=== PATIENT | female | born 1985 | race Caucasian/White ===

== ENCOUNTER → 2019-01-23 | Outpatient (CLI) | payer OTHER ==
--- NOTE | 2019-01-23 12:45 | REP ---
PA AND LATERAL CHEST: 01/23/2019. Clinical history: Cough for over 10 days. Findings: No prior study. The lungs are well inflated. CP angles sharply defined without effusion. No lateral pleural thickening. Peribronchial thickening noted in the perihilar regions without dense consolidation. The heart, mediastinal and hilar contours are normal. Aorta and airway are intact. Bony thorax unremarkable. No free air. Impression: 1. Some perihilar changes of bronchitis or reactive airway disease without dense consolidation or effusion. Electronically Signed by Franklyn Duran MD 01/23/2019 09:52 P
== END ==
LOC: M LRY 11:01
PROVIDERS: ATTEND Nurse Practitioner Family
DX: R05 Cough (principal); R91.8 Other nonspecific abnormal finding of lung field
CPT/HCPCS: 71046; 94640; G0463